=== PATIENT | female | born 1955 | race Caucasian/White ===

== ENCOUNTER → 2016-10-06 | Outpatient (CLI) | payer BC ==
[~2016-10-06] MED LIST: LIPITOR 10MG10 MG PO; TENORMIN100 MG PO; ZITHROMAX 250M250 MG PO; ZOLOFT 100MG100 MG PO
== END ==
LOC: MC.RAD 08:40
DX: Z12.31 Encounter for screening mammogram for malignant neoplasm of breast (principal); Z85.3 Personal history of malignant neoplasm of breast

== ENCOUNTER 2016-12-18 16:06 | Emergency (ER) | payer BC ==
[~2016-12-18] VITALS: Ht 162.6 cm; Wt 104.5 kg
[2016-12-18 16:08] VITALS: BP 119/84; TEMP 98.5
[2016-12-18] MEDS ORDERED: LIPITOR 10MG10 MG PO (16:19)
[2016-12-18] MEDS ORDERED: PRINZIDE 25 MG-1 TAB PO (16:19)
[2016-12-18] MEDS ORDERED: ZOLOFT 100MG100 MG PO (16:19)
[2016-12-18] MEDS ORDERED: ASPIRIN 81M81 MG/TA2 PO (16:20)
[2016-12-18] MEDS ORDERED: BIOTIN5000 MCG PO (16:21)
[2016-12-18] MEDS ORDERED: VITAMIN D 400400 IU PO (16:21)
[2016-12-18] MEDS ORDERED: B-12 100 MCG PO (16:21)
[2016-12-18] MEDS ORDERED: CRANBERRY500 M3 PO (16:22)
[2016-12-18 16:58] LABS: BASO # 0.1 (0.0-0.2); BASO % 0.5 % (0.0-2.0); EOS # 0.3 (0.0-0.7); EOS % 2.9 % (0-4.0); GRAN # 7.8 (1.4-6.5); GRAN % 74.5 % (42.2-75.2); HEMATOCRIT 42.2 % (37.0-47.0); LYMPH # 1.7 (1.2-3.4); LYMPH % 16.2 % (20.0-51.0); MEAN CELL VOLUME 87 fl (80.0-100.0); MEAN CORPUSCULAR HEMOGLOBIN 29 pg (27.0-31.0); MEAN CORPUSCULAR HGB CONC 33 g/dl (33.0-37.0); MEAN PLATELET VOLUME 9.8 fl (7.4-10.4); MONO # 0.6 (0.1-0.6); MONO % 5.3 % (1.7-9.3); PLATELET COUNT 229 K/mm3 (130-400); RED BLOOD COUNT 4.84 M/mm3 (4.10-5.30); WHITE BLOOD COUNT 10.5 K/mm3 (4.8-10.8)
[2016-12-18 17:09] LABS: ADJUSTED CALCIUM 9.2 mg/dL (8.4-10.2); ALBUMIN 4.4 gm/dL (3.5-5.0); BILIRUBIN,TOTAL 0.6 mg/dL (0.0-1.0); C-REACTIVE PROTEIN 0.7 mg/dL (0.0-0.9); CALCIUM 9.5 mg/dL (8.4-10.2); CREATININE, serum 0.77 mg/dL (0.52-1.25); POTASSIUM 3.4 mmol/L (3.4-5.0); TOTAL PROTEIN 7.8 gm/dL (6.4-8.2)
[2016-12-18] MEDS ORDERED: ULTRAM 50MG TAB50 MG PO (17:29)
[2016-12-18] MEDS ORDERED: PREDNISONE20 MG PO (17:29)
[2016-12-18 17:38] LABS: ERYTHROCYTE SEDIMENTATION RATE 6 mm/hr (0-30)
[2016-12-18 17:43] VITALS: PULSE 84
== END 2016-12-18 17:44 | disposition home or self-care (01) ==
LOC: COL.ER 16:06
PROVIDERS: Emergency Medicine
DX: M26.621 Arthralgia of right temporomandibular joint (principal); I10 Essential (primary) hypertension; E78.5 Hyperlipidemia, unspecified; Z79.82 Long term (current) use of aspirin
CPT/HCPCS: J7512

== ENCOUNTER → 2016-12-27 | Outpatient (CLI) | payer BC ==
[~2016-12-27] MED LIST changes: +ASPIRIN 81M81 MG/TA2 PO; +B-12 100 MCG PO; +BIOTIN5000 MCG PO; +CRANBERRY500 M3 PO; +FLEXERIL5 MG PO; +NORCO 325 MG-51 TAB PO; +PREDNISONE20 MG PO; +PRINZIDE 25 MG-1 TAB PO; +ULTRAM 50MG TAB50 MG PO; +VITAMIN D 400400 IU PO
== END ==
LOC: COL.RAD 07:25
DX: K02.7 Dental root caries (principal); J34.89 Other specified disorders of nose and nasal sinuses

== ENCOUNTER → 2019-12-05 | Outpatient (CLI) | payer BC | LOC: MC.RAD 15:00 | DX: Z12.31 Encounter for screening mammogram for malignant neoplasm of breast (principal); Z98.890 Other specified postprocedural states; Z92.3 Personal history of irradiation ==

== ENCOUNTER 2021-02-13 04:32 | Emergency (ER) | payer BC ==
[~2021-02-13] VITALS: Ht 162.6 cm; Wt 100.0 kg
[2021-02-13 04:40] VITALS: TEMP 99.4
[2021-02-13] MEDS ORDERED: PREDNISONE20 MG PO (06:08)
[2021-02-13] MEDS ORDERED: ZITHROMAX 250M250 MG PO (06:08)
[2021-02-13 06:12] VITALS: BP 115/66; PULSE 70
== END 2021-02-13 06:48 | disposition home or self-care (01) ==
LOC: COL.ER 04:32
DX: J40 Bronchitis, not specified as acute or chronic (principal); I10 Essential (primary) hypertension; F32.A Depression, unspecified; Z79.899 Other long term (current) drug therapy; Z20.822 Contact with and (suspected) exposure to COVID-19
CPT/HCPCS: J7512

== ENCOUNTER → 2022-01-01 | Outpatient (CLI) | payer BC | LOC: COL.RAD 09:55 | DX: K80.20 Calculus of gallbladder without cholecystitis without obstruction (principal); K76.0 Fatty (change of) liver, not elsewhere classified; K80.80 Other cholelithiasis without obstruction ==